=== PATIENT | female | born 1945 | race Caucasian/White ===

== ENCOUNTER 2017-01-07 14:28 | Emergency (ER) | payer OTHER ==
[~2017-01-07] VITALS: Ht 165.1 cm; Wt 113.0 kg
[2017-01-07 15:27] LABS: HEMATOCRIT 40.1 % (36.0-46.0); MCH 30.2 PG (29.0-34.0); MCHC 34.7 G/DL (30.0-36.0); MEAN PLAT.VOLUME 9.7 uM^3 (9.5-12.4); PLATELET COUNT 260 K/uL (156-360); RBC DIS.WIDTH-CV 12.8 % (11.8-14.6); RBC DIS.WIDTH-SD 40.6 % (39-53); RED BLOOD COUNT 4.61 M/uL (3.80-5.20); WHITE BLOOD COUNT 8.6 K/uL (4.1-10.2)
[2017-01-07 15:42] LABS: CHLORIDE 105 mEq/L (99-109); SODIUM 142 mEq/L (136-147)
[2017-01-07 15:44] LABS: GLUCOSE 95 mg/dL (70-99); POTASSIUM 3.3 mEq/L (3.7-5.4)
[2017-01-07 15:45] LABS: ANION GAP 11 MEQ/L (2-14)
[2017-01-07 15:48] LABS: GFR ESTIMATE (CALCULATED) 58 mL/min/
[2017-01-07 15:49] LABS: UREA NITROGEN (BUN) 13 mg/dL (9-23)
[2017-01-07 17:23] VITALS: BP 140/67
== END 2017-01-07 17:26 | disposition home or self-care (01) ==
LOC: EME 14:28
DX: M54.16 Radiculopathy, lumbar region (principal); E87.6 Hypokalemia; M79.604 Pain in right leg
CPT/HCPCS: 70450; 71020; 80048; 85027; 93005; 99281; 99284